=== PATIENT | male | born 1990 | race Caucasian/White ===

== ENCOUNTER 2017-12-03 14:27 | Inpatient (IN) | payer OTHER ==
[~2017-12-03] VITALS: Ht 180.3 cm; Wt 76.0 kg
[2017-12-03 15:30] VITALS: BP 138/81; PULSE 71; RESP 18; TEMP 98.1; O2SAT 99
[2017-12-03 16:10] VITALS: BP 147/64; PULSE 75; RESP 18; O2SAT 99
[2017-12-03] MEDS ORDERED: SODIUM CHLOR 0.9% 1000 ML INJ 1,000 ML IV SCH (16:11)
[2017-12-03] MEDS ORDERED: SODIUM CHLORIDE 0.9% FLUSH 10 ML FLUSH IV FLUSH PRN ×2 (16:15→18:45)
[2017-12-03] MEDS ORDERED: MORPHINE SULFATE 4 MG/ML INJ IV PUSH ONE (16:15)
[2017-12-03] MEDS ORDERED: ONDANSETRON HCL 4 MG/2 ML VIAL IVP ONE (16:15)
[2017-12-03 16:39] VITALS: O2SAT 97
[2017-12-03] MEDS ORDERED: MORPHINE SULFATE 2 MG/ML INJ IV PUSH ONE (17:15)
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
[2017-12-03 17:30] LABS: BASOPHIL % 0.1 % (0.0-2.0); HEMATOCRIT 42.6 % (39.0-51.0); HEMOGLOBIN 14.6 GM/DL (13.0-17.0); LYMPH % 8.2 % (9.0-44.0); LYMPHOCYTE # 1.2 TH/MM3 (1.0-4.8); MEAN CELL VOLUME 85.6 FL (80.0-100.0); MEAN CORPUSCULAR HEMOGLOBIN 29.3 PG (27.0-34.0); MEAN CORPUSCULAR HGB CONC 34.3 % (32.0-36.0); MEAN PLATELET VOLUME 8.6 FL (7.0-11.0); MONO % 4.3 % (0.0-8.0); MONOCYTE # 0.6 TH/MM3 (0-0.9); NEUT % 87.4 % (16.0-70.0); PLATELET COUNT 199 TH/MM3 (150-450); RED BLOOD COUNT 4.98 MIL/MM3 (4.50-5.90); RED CELL DISTRIBUTION WIDTH 14.4 % (11.6-17.2); WHITE BLOOD COUNT 14.9 TH/MM3 (4.0-11.0)
[2017-12-03 17:46] LABS: INTERNATIONAL NORMALIZED RATIO 1.1 RATIO; PROTHROMBIN TIME - PATIENT 11.5 SEC (9.8-11.6)
[2017-12-03 17:56] LABS: ALBUMIN 4.2 GM/DL (3.4-5.0); ALT (GPT) 40 U/L (12-78); AST (GOT) 27 U/L (15-37); BICARBONATE 27.2 MEQ/L (21.0-32.0); BLOOD UREA NITROGEN 21 MG/DL (7-18); CALCIUM 8.5 MG/DL (8.5-10.1); CHLORIDE 105 MEQ/L (98-107); CREATININE 0.88 MG/DL (0.60-1.30); GLOMERULAR FILTRATION RATE 106 ML/MIN (>89); GLUCOSE,RANDOM 89 MG/DL (74-106); SODIUM (NA) 139 MEQ/L (136-145)
[2017-12-03 17:58] LABS: ALKALINE PHOSPHATASE 125 U/L (45-117); TOTAL BILIRUBIN ADULT 1.8 MG/DL (0.2-1.0); TOTAL PROTEIN 7.3 GM/DL (6.4-8.2)
[2017-12-03 18:00] VITALS: BP 146/81; PULSE 79; RESP 18; O2SAT 99
[2017-12-03] MEDS ORDERED: HYDROmorphone HCL PF 2 MG/ML VIAL IV PUSH ONE (18:00)
[2017-12-03] MEDS ORDERED: LACTULOSE SYRUP 20 GM/30 ML CUP PO PRN (18:45)
[2017-12-03] MEDS ORDERED: ONDANSETRON HCL 4 MG/2 ML VIAL IVP PRN (18:45)
[2017-12-03] MEDS ORDERED: BISACODYL 10 MG SUPP RECTAL PRN (18:45)
[2017-12-03] MEDS ORDERED: ACETAMINOPHEN 325 MG TAB PO PRN (18:45)
[2017-12-03] MEDS ORDERED: MAGNESIUM HYDROXIDE SUSP 30 ML CUP PO PRN (18:45)
[2017-12-03] MEDS ORDERED: NALOXONE HCL 0.4 MG/ML AMP IV PUSH PRN (18:45)
[2017-12-03] MEDS ORDERED: SENNOSIDES 8.6 MG TAB PO PRN (18:45)
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
[2017-12-03 19:42] VITALS: BP 171/95; PULSE 72; RESP 18; TEMP 98.1; O2SAT 99
[2017-12-03] MEDS: oxyCODONE/ACETAMINOPHEN 5 MG/325 MG TAB PO PRN ×2 (19:44→23:28)
[2017-12-03] MEDS ORDERED: LACTATED RINGER'S 1000 ML IV PRN (20:00)
[2017-12-03] MEDS ORDERED: POVIDONE IODINE 5% (ANTISEPSIS KIT) 4 APPLICATIONS EACH NARE PRN (20:00)
[2017-12-03] MEDS ORDERED: SODIUM CHLORID 0.9% 500 ML IV PRN (20:00)
[2017-12-03] MEDS ORDERED: CHLORHEXIDINE GLUCONATE 2 % 1 PACK (2 CLOTHS) TOPICAL PRN (20:00)
[2017-12-03] MEDS: DOCUSATE SODIUM 50 MG/SENNA 8.6 MG TAB PO SCH (21:00)
[2017-12-03] MEDS: SODIUM CHLORIDE 0.9% FLUSH 10 ML FLUSH IV FLUSH SCH (21:00)
[2017-12-03] MEDS: SODIUM CHLOR 0.9% 1000 ML INJ 1,000 ML IV SCH (21:04)
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
[2017-12-03] MEDS: HYDROmorphone HCL PF 2 MG/ML VIAL IV PUSH PRN (21:39)
[2017-12-04] VITALS: BP 153/91; PULSE 63; RESP 18; TEMP 97.9; O2SAT 98
[2017-12-04] MEDS: HYDROmorphone HCL PF 2 MG/ML VIAL IV PUSH PRN ×7 (00:20→21:40)
[2017-12-04] MEDS: oxyCODONE/ACETAMINOPHEN 5 MG/325 MG TAB PO PRN (05:49)
[2017-12-04] MEDS: SODIUM CHLOR 0.9% 1000 ML INJ 1,000 ML IV SCH ×2 (06:00→16:00)
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
[2017-12-04 07:52] VITALS: BP 151/85; PULSE 63; RESP 19; TEMP 97.1; O2SAT 99
[2017-12-04] MEDS ORDERED: oxyCODONE/ACETAMINOPHEN 7.5 MG/325 MG TAB PO PRN (08:15)
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
[2017-12-04] MEDS: SODIUM CHLORIDE 0.9% FLUSH 10 ML FLUSH IV FLUSH SCH ×2 (09:29→20:54)
[2017-12-04] MEDS: DOCUSATE SODIUM 50 MG/SENNA 8.6 MG TAB PO SCH ×2 (09:29→19:27)
[2017-12-04] MEDS: ENOXAPARIN SODIUM 40 MG/0.4 ML SYRINGE SQ SCH (10:16)
[2017-12-04] MEDS: oxyCODONE/ACETAMINOPHEN 7.5 MG/325 MG TAB PO PRN ×4 (10:41→23:40)
[2017-12-04 11:50] VITALS: BP 152/96; PULSE 57; RESP 19; TEMP 96.7; O2SAT 98
[2017-12-04 16:00] VITALS: BP 148/91; PULSE 61; RESP 19; TEMP 99.1; O2SAT 99
[2017-12-04 20:00] VITALS: BP 136/85; PULSE 58; RESP 18; TEMP 97.1; O2SAT 100
[2017-12-05] VITALS (8 sets, daily range): BP systolic 131–159; BP diastolic 74–95; PULSE 59–70; RESP 14–20; TEMP 96.4–100; O2SAT 98–99
[2017-12-05] MEDS: HYDROmorphone HCL PF 2 MG/ML VIAL IV PUSH PRN ×2 (00:31→04:16)
[2017-12-05] MEDS: SODIUM CHLOR 0.9% 1000 ML INJ 1,000 ML IV SCH ×3 (02:00→22:00)
[2017-12-05] MEDS ORDERED: GENTAMICIN SULFATE 80 MG/2 ML VIAL ONE (06:47)
[2017-12-05] MEDS ORDERED: SODIUM CHLOR 0.9% 250 ML INJ 250 ML ONE (06:47)
[2017-12-05] MEDS ORDERED: VANCOMYCIN HCL 1000 MG VIAL ONE (06:47)
[2017-12-05] MEDS ORDERED: ceFAZolin 2 GM PREMIX 50 ML ONE (07:10)
[2017-12-05] MEDS ORDERED: ACETAMINOPHEN 1000 MG/100 ML 100 ML IV ONE (07:16)
[2017-12-05] MEDS: ENOXAPARIN SODIUM 40 MG/0.4 ML SYRINGE SQ SCH (07:28)
[2017-12-05] MEDS: SODIUM CHLORIDE 0.9% FLUSH 10 ML FLUSH IV FLUSH SCH ×2 (07:28→20:00)
[2017-12-05] MEDS: DOCUSATE SODIUM 50 MG/SENNA 8.6 MG TAB PO SCH ×2 (07:28→20:00)
[2017-12-05] MEDS ORDERED: WHEEMIS3 (09:04)
[2017-12-05] MEDS ORDERED: WALKER/ADULT/FO1 MIS (09:04)
[2017-12-05] MEDS ORDERED: XARE10TA PO (09:04)
[2017-12-05] MEDS ORDERED: HYDR-3583 PO (09:04)
[2017-12-05] MEDS ORDERED: NALOXONE HCL 0.4 MG/ML AMP IV PUSH PRN (10:00)
[2017-12-05] MEDS ORDERED: MISCELLANEOUS NURSING INFORMATION XX PRN (10:00)
[2017-12-05] MEDS ORDERED: diphenhydrAMINE HCL 25 MG CAP PO PRN (10:00)
[2017-12-05] MEDS ORDERED: Post-op Orders (for Pharmacy) XX ONE (10:00)
--- NOTE | 2017-12-05 10:02 | PD.OP ---
cc: Chuck Mills MD Operative Report Date of Surgery: Dec 05, 2017 Preoperative Diagnosis: Comminuted right lateral tibial plateau fracture Postoperative Diagnosis: Same, large bucket-handle lateral meniscus tear Procedure: Primary repair right lateral meniscus, open reduction internal fixation right tibial plateau Anesthesia: Gen. Surgeon: Chuck Mills Acid Concentrator(s): ANGEL Chinchilla PA-C The surgical procedure was assisted by my physician assistant in nursing. My P.A. presence was necessary throughout this case for the manipulation and positioning of the surgical extremity. My P.A. was assisting me throughout the duration of this procedure. The skill set of a physician assistant in nursing was medically necessary to complete this procedure. During the surgical case the surgical elastic knitter was working at the back table and the physician assistant in nursing was directly assisting me. Operation and Findings: Implants used: Synthes Plan of activity: Nonweightbearing 3 months, passive knee range of motion This patient was seen and evaluated preoperatively. Patient sustained an injury resulting a comminuted right tibial plateau fracture. Informed consent was obtained preoperatively after detailed discussion of the risks and benefits of surgery. Risk of surgery including bleeding, infection, nonunion, painful hardware, stiffness, loss of motion, arthritis, need for knee replacement, as well as medical complications including blood clots, stroke, heart attack, and were discussed. I also discussed the possibility of using allograft bone graft . Preoperatively the operative site was marked. Patient was brought to the operating room and placed on the operating room table. Intravenous sedation and general endotracheal anesthesia were administered. IV antibiotics were given and a time out procedure was preformed. The operative leg was prepped with alcohol followed by Hibiclens and draped in the usual sterile fashion. Procedure began with a 4-inch curvilinear incision over the anterolateral knee. Subcutaneous tissue was treated with Bovie. Iliotibial band was split in line with fibers. A sub-meniscal arthrotomy was created and the lateral articular surface was visualized. At this point it was noted that patient had a large bucket handle type lateral meniscus tear. Attention was turned towards repair of this tear. The meniscus was reduced. #1 Vicryl sutures were used for repair. 4 vertical mattress sutures were placed. The meniscus reduced into appropriate alignment. The meniscus appeared to be stable at this time. Next attention was turned towards open reduction internal fixation of tibial plateau. There was significant comminution and depression of the articular surface. A window was made in the metaphyseal region and bone tamps used to elevate the articular surface. The articular surface was in multiple small fragments. Fracture fragments were manipulated to achieve optimal reduction. K -wires were used for provisional fixation. At this point cancellous bone graft was packed under the articular surface using a bone tamp. An additional 5 cc of Ceramet cement was placed underneath the articular surface for additional support. The cortical fragments were now reduced. Fluoroscopy revealed excellent alignment of fracture. A Synthes proximal tibial plate was selected. The plate was provisionally held with K-wires. 3.5 cortical screws were used compress plate to bone distally, and a periarticular clamp was used to compress the medial and lateral tibial plateau fracture fragments together. Multiple locking screws were now placed proximally. Additional screws were placed in the shaft. K-wires were removed. Final fluoroscopy showed excellent alignment of fracture with well-placed hardware. The incision was thoroughly irrigated. Arthrotomy and iliotibial band closed with #1 Vicryl,. Subcutaneous tissues closed with 3-0 Vicryl and skin was closed with khushbu. Sterile dressings were applied. The patient was transferred to recovery in stable condition. Chuck Mills MD Dec 05, 2017 10:02
[2017-12-05] MEDS ORDERED: *PROMETHAZINE 25 MG/ML VIAL PERIprocedural use ONLY ONE (10:21)
[2017-12-05] MEDS ORDERED: MIDAZOLAM HCL 2 MG/2 ML VIAL ONE (10:25)
[2017-12-05] MEDS ORDERED: *morphine SULFATE 4 MG/ML PERIprocedure ONLY ONE ×2 (10:31→10:41)
--- NOTE | 2017-12-05 10:39 | PD.ORT.PN ---
Subjective Subjective Remarks Resting comfortably with no new complaints Objective Vitals Vital Signs Date Time Temp Pulse Resp B/P (MAP) Pulse Ox O2 Delivery O2 Flow Rate FiO2 12/05/17 04:32 98 12/05/17 04:00 97.6 62 18 131/83 (99) 98 12/05/17 00:00 98.4 62 20 159/83 (108) 99 12/04/17 20:00 97.1 58 18 136/85 (102) 100 12/04/17 16:00 99.1 61 19 148/91 (110) 99 12/04/17 11:50 96.7 57 19 152/96 (114) 98 I/O 12/04/17 12/04/17 12/04/17 12/05/17 12/05/17 12/05/17 07:00 15:00 23:00 07:00 15:00 23:00 Intake Total 240 ml 900 ml 1000 ml 2500 ml Output Total 800 ml 2000 ml 300 ml Balance -560 ml -1100 ml 1000 ml 2200 ml Intake Oral 240 ml 900 ml IV Total 1000 ml Other 2500 ml Output Urine Total 800 ml 2000 ml Estimated Blood Loss 300 ml # Bowel Movements 0 Result Diagram: 12/03/17 1709 12/03/17 1709 Imaging Last 24 hours Impressions Knee X-Ray 12/03/17 1614 Signed Impressions: Service Date/Time: Sunday, December 03, 2017 16:31 - CONCLUSION: 1. Displaced tibial plateau fracture as above with large joint effusion. Jv Thorne MD Chest X-Ray 12/03/17 1614 Signed Impressions: Service Date/Time: Sunday, December 03, 2017 16:26 - CONCLUSION: No acute cardiopulmonary disease identified. . Fady Julien MD Objective Remarks Awake, alert, no acute distress Right lower extremity: Knee immobilizer and ice pack in place. Swelling does appear slightly improved from last night. Patient is neurovascularly intact distally. Negative [facility] Assessment & Plan Assessment and Plan right tibial plateau fracture ORIF POD 0 Nonweightbearing right lower extremity in knee immobilizer. No active leglifts or quad sets Strict elevation and ice. Daily dressing changes beginning POD 2 Lovenox for DVT prophylaxis Incentive spirometry Luis Maxwell Jr. Dec 05, 2017 10:38
[2017-12-05] MEDS: LACTATED RINGER'S 1000 ML INJ 1,000 ML IV SCH ×2 (10:57→22:26)
[2017-12-05] MEDS ORDERED: ERGOCALCIFEROL (VIT D2) 50,000 UNIT CAP PO SCH (11:00)
[2017-12-05] MEDS ORDERED: PROPOFOL 200 MG/20 ML AMP IV ONE (12:00)
[2017-12-05] MEDS ORDERED: ONDANSETRON HCL 4 MG/2 ML VIAL IV ONE (12:00)
[2017-12-05] MEDS ORDERED: DO NOT ADM ANY ANTICOAGULANT DRUGS PRN (12:00)
[2017-12-05] MEDS ORDERED: ePHEDrine/NS 25 MG/5 ML SYRINGE IV ONE (12:00)
[2017-12-05] MEDS ORDERED: LIDOCAINE HCL 1% PF 5 ML SYRINGE OTHER ONE (12:00)
[2017-12-05] MEDS ORDERED: DEXAMETHASONE SOD PHOS 4 MG/ML VIAL IV ONE (12:00)
[2017-12-05] MEDS: CALCIUM/VITAMIN D 250 MG/125 U TAB PO SCH ×2 (12:19→16:04)
[2017-12-05] MEDS: ACETAMINOPHEN/HYDROcodone 325 MG/10 MG TAB PO PRN ×4 (12:20→23:30)
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
[2017-12-05] MEDS: ceFAZolin 2 GM PREMIX 50 ML IV SCH ×2 (16:04→22:17)
[2017-12-05] MEDS: MORPHINE SULFATE 4 MG/ML INJ IV PUSH PRN ×2 (18:22→22:17)
[2017-12-05] MEDS: VANCOMYCIN INJ 1,000 MG in SODIUM CHLOR 0.9% 250 ML INJ 250 ML IV SCH (20:00)
[2017-12-06] VITALS: BP 163/83; PULSE 79; RESP 16; TEMP 96.8; O2SAT 96
[2017-12-06] MEDS: TEMAZEPAM 15 MG CAP PO PRN ×2 (00:07→22:48)
[2017-12-06] MEDS: MORPHINE SULFATE 4 MG/ML INJ IV PUSH PRN ×7 (01:08→22:49)
[2017-12-06] MEDS: LACTATED RINGER'S 1000 ML INJ 1,000 ML IV SCH ×2 (01:45→08:45)
[2017-12-06] MEDS: ACETAMINOPHEN/HYDROcodone 325 MG/10 MG TAB PO PRN ×6 (03:14→21:23)
[2017-12-06 04:00] VITALS: BP 153/77; PULSE 65; RESP 17; TEMP 99; O2SAT 99
[2017-12-06 04:41] LABS: HEMATOCRIT 31.6 % (39.0-51.0); HEMOGLOBIN 11.2 GM/DL (13.0-17.0)
[2017-12-06] MEDS: ceFAZolin 2 GM PREMIX 50 ML IV SCH ×3 (05:51→22:48)
--- NOTE | 2017-12-06 06:51 | PD.ORT.PN ---
Subjective Subjective Remarks Resting comfortably with no new complaints Objective Vitals Vital Signs Date Time Temp Pulse Resp B/P (MAP) Pulse Ox O2 Delivery O2 Flow Rate FiO2 12/06/17 04:00 99.0 65 17 153/77 (102) 99 12/06/17 00:00 96.8 79 16 163/83 (109) 96 12/05/17 21:50 98 21 12/05/17 20:14 100.0 70 18 156/74 (101) 99 12/05/17 16:50 98 12/05/17 16:00 96.4 59 15 155/90 (111) 99 12/05/17 12:00 96.5 70 14 157/95 (115) 99 12/05/17 11:15 98.8 97 15 166/94 (118) 100 Nasal Cannula 3 12/05/17 11:00 82 15 155/94 (114) 100 Nasal Cannula 3 12/05/17 10:45 98 16 161/91 (114) 100 Nasal Cannula 3 12/05/17 10:30 91 16 176/91 (119) 100 Nasal Cannula 3 12/05/17 10:20 98.4 113 15 164/88 (113) 94 Nasal Cannula 3 I/O 12/05/17 12/05/17 12/05/17 12/06/17 12/06/17 12/06/17 07:00 15:00 23:00 07:00 15:00 23:00 Intake Total 1000 ml 3080 ml 760 ml 480 ml Output Total 3450 ml 1500 ml 1000 ml Balance 1000 ml -370 ml -740 ml -520 ml Intake Oral 480 ml 760 ml 480 ml IV Total 1000 ml 100 ml Other 2500 ml Output Urine Total 3150 ml 1500 ml 1000 ml Estimated Blood Loss 300 ml # Bowel Movements 0 Result Diagram: 12/06/17 0410 12/03/17 1709 Imaging Last 24 hours Impressions Knee X-Ray 12/03/17 1614 Signed Impressions: Service Date/Time: Sunday, December 03, 2017 16:31 - CONCLUSION: 1. Displaced tibial plateau fracture as above with large joint effusion. Jv Thorne MD Chest X-Ray 12/03/17 1614 Signed Impressions: Service Date/Time: Sunday, December 03, 2017 16:26 - CONCLUSION: No acute cardiopulmonary disease identified. . Fady Julien MD Objective Remarks Awake, alert, no acute distress Right lower extremity: Knee immobilizer and ice pack in place. Clean dry dressings in place. Distally intact sensation with active dorsiflexion plantar flexion foot Assessment & Plan Assessment and Plan right tibial plateau fracture ORIF POD 1 Nonweightbearing right lower extremity in knee immobilizer. No active leglifts or quad sets Strict elevation and ice. Passive range of motion of knee from 0-90 Daily dressing changes beginning POD 2 Lovenox for DVT prophylaxis Incentive spirometry Discharge plan Luis Maxwell Jr. Dec 06, 2017 06:51
[2017-12-06 08:00] VITALS: BP 152/85; PULSE 60; RESP 18; TEMP 99.3; O2SAT 96
[2017-12-06] MEDS: SODIUM CHLOR 0.9% 1000 ML INJ 1,000 ML IV SCH ×2 (08:00→13:42)
[2017-12-06] MEDS: VANCOMYCIN INJ 1,000 MG in SODIUM CHLOR 0.9% 250 ML INJ 250 ML IV SCH ×2 (08:45→20:40)
[2017-12-06] MEDS: CHOLECALCIFEROL (VIT D3) 1000 UNIT TAB PO SCH (08:46)
[2017-12-06] MEDS: CALCIUM/VITAMIN D 250 MG/125 U TAB PO SCH ×3 (08:46→16:14)
[2017-12-06] MEDS: SODIUM CHLORIDE 0.9% FLUSH 10 ML FLUSH IV FLUSH SCH ×2 (08:46→20:40)
[2017-12-06] MEDS: DOCUSATE SODIUM 50 MG/SENNA 8.6 MG TAB PO SCH ×2 (08:46→20:41)
[2017-12-06] MEDS: ENOXAPARIN SODIUM 40 MG/0.4 ML SYRINGE SQ SCH (10:32)
[2017-12-06 12:00] VITALS: BP 154/86; PULSE 73; RESP 18; TEMP 98.9; O2SAT 100
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
[2017-12-06 16:00] VITALS: BP 156/77; PULSE 80; RESP 18; TEMP 99.2; O2SAT 100
[2017-12-06 20:37] VITALS: BP 158/82; PULSE 85; RESP 17; TEMP 99.6; O2SAT 99
[2017-12-07 00:37] VITALS: BP 158/88; PULSE 94; RESP 17; TEMP 98.5; O2SAT 98
[2017-12-07] MEDS: ACETAMINOPHEN/HYDROcodone 325 MG/10 MG TAB PO PRN ×6 (01:07→20:55)
[2017-12-07] MEDS: SODIUM CHLOR 0.9% 1000 ML INJ 1,000 ML IV SCH (02:23)
[2017-12-07] MEDS: MORPHINE SULFATE 4 MG/ML INJ IV PUSH PRN ×3 (02:51→23:26)
[2017-12-07] MEDS: ceFAZolin 2 GM PREMIX 50 ML IV SCH (05:29)
[2017-12-07] MEDS: BACITRACIN TOP OINT 15 GM TUBE TOPICAL SCH ×2 (05:30→09:29)
--- NOTE | 2017-12-07 06:34 | PD.ORT.PN ---
Subjective Subjective Remarks POD 2 s/p ORIF right tibial plateau doing well. reports pain but controlled. states swelling has increased. Objective Vitals Vital Signs Date Time Temp Pulse Resp B/P (MAP) Pulse Ox O2 Delivery O2 Flow Rate FiO2 12/07/17 00:37 98.5 94 17 158/88 (111) 98 12/06/17 20:37 99.6 85 17 158/82 (107) 99 12/06/17 16:00 99.2 80 18 156/77 (103) 100 12/06/17 12:00 98.9 73 18 154/86 (108) 100 12/06/17 08:00 99.3 60 18 152/85 (107) 96 I/O 12/06/17 12/06/17 12/06/17 12/07/17 12/07/17 12/07/17 07:00 15:00 23:00 07:00 15:00 23:00 Intake Total 530 ml 600 ml 610 ml 100 ml Output Total 1000 ml 650 ml 1050 ml Balance -470 ml -50 ml -440 ml 100 ml Intake Oral 480 ml 600 ml 360 ml IV Total 50 ml 250 ml 100 ml Output Urine Total 1000 ml 650 ml 1050 ml # Bowel Movements 0 Result Diagram: 12/06/17 0410 12/03/17 1709 Imaging Last 24 hours Impressions Knee X-Ray 12/03/17 1614 Signed Impressions: Service Date/Time: Sunday, December 03, 2017 16:31 - CONCLUSION: 1. Displaced tibial plateau fracture as above with large joint effusion. Jv Thoren MD Chest X-Ray 12/03/17 1614 Signed Impressions: Service Date/Time: Sunday, December 03, 2017 16:26 - CONCLUSION: No acute cardiopulmonary disease identified. . Fady Julien MD Objective Remarks Awake, alert, no acute distress Right lower extremity: Knee immobilizer and ice pack in place. Clean dry dressings in place. Distally intact sensation with active dorsiflexion plantar flexion foot. 2+ swelling of lower leg Assessment & Plan Assessment and Plan 1) right tibial plateau fracture s/p ORIF - POD 2 Nonweightbearing right lower extremity in knee immobilizer. No active leglifts or quad sets Strict elevation and ice. Passive range of motion of knee from 0-90 Daily dressing changes beginning POD 2 Lovenox for DVT prophylaxis Incentive spirometry keep 1 more day to eval swelling. if swelling improved, plan for DC home tomorrow and follow up with Mehrdad in 2 weeks Mario Vasquez/First Leeann ANNE Dec 07, 2017 06:34
--- NOTE | 2017-12-07 06:36 | HHI.FF ---
Face to Face Verification Diagnosis: (1) Closed fracture of right tibial plateau Physical Therapy Gait training Knee: Knee fracture, Protocol: Right, Non weight bearing Canvas Knee Splint: Remove only with PT Right LE Weight Bearing: Non WB, No Strengthening, No Quad Sets Right LE Range of Motion: Passive ROM (0-90 deg) Nursing Dressing Changes: Daily dressing change, Luisito wrap, 4x4s, Xeroform I have seen patient Larry Frausto on 12/07/17. My clinical findings support the need for the requested home health care services because: Ltd mobility - disease progression I certify that my clinical findings support that this patient is homebound because: Post-op weakness Mario Vasquez/First Leeann ANNE Dec 07, 2017 06:36
[2017-12-07] MEDS ORDERED: KETOROLAC TROMETHAMINE 60 MG/2 ML (IM) VIAL IM SCH (07:00)
[2017-12-07] MEDS: KETOROLAC TROMETHAMINE 30 MG/ML (IVP) VIAL IV PUSH SCH ×4 (07:40→23:26)
[2017-12-07 07:59] VITALS: BP 155/82; PULSE 83; RESP 19; TEMP 99; O2SAT 98
[2017-12-07] MEDS: CHOLECALCIFEROL (VIT D3) 1000 UNIT TAB PO SCH (09:00)
[2017-12-07] MEDS: CALCIUM/VITAMIN D 250 MG/125 U TAB PO SCH ×3 (09:25→16:59)
[2017-12-07] MEDS: DOCUSATE SODIUM 50 MG/SENNA 8.6 MG TAB PO SCH ×2 (09:25→20:55)
[2017-12-07] MEDS: SODIUM CHLORIDE 0.9% FLUSH 10 ML FLUSH IV FLUSH SCH ×2 (09:27→20:55)
[2017-12-07] MEDS: ENOXAPARIN SODIUM 40 MG/0.4 ML SYRINGE SQ SCH (09:28)
[2017-12-07 11:46] VITALS: BP 156/78; PULSE 85; RESP 19; TEMP 97.2; O2SAT 100
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
[2017-12-07 15:24] VITALS: BP 149/79; PULSE 86; RESP 19; TEMP 97.2; O2SAT 99
[2017-12-07 19:55] VITALS: BP 146/74; PULSE 76; RESP 16; TEMP 98.4; O2SAT 99
[2017-12-07 23:25] VITALS: BP 154/88; PULSE 90; RESP 17; TEMP 98.9; O2SAT 99
[2017-12-07] MEDS: TEMAZEPAM 15 MG CAP PO PRN (23:26)
[2017-12-08] MEDS: LACTATED RINGER'S 1000 ML INJ 1,000 ML IV SCH (00:26)
[2017-12-08] MEDS: ACETAMINOPHEN/HYDROcodone 325 MG/10 MG TAB PO PRN ×3 (05:15→12:21)
--- NOTE | 2017-12-08 06:29 | PD.ORT.PN ---
Subjective Subjective Remarks POD 2 s/p ORIF right tibial plateau doing well. reports pain but controlled. states swelling improved Objective Vitals Vital Signs Date Time Temp Pulse Resp B/P (MAP) Pulse Ox O2 Delivery O2 Flow Rate FiO2 12/07/17 23:25 98.9 90 17 154/88 (110) 99 12/07/17 19:55 98.4 76 16 146/74 (98) 99 12/07/17 15:24 97.2 86 19 149/79 (102) 99 12/07/17 11:46 97.2 85 19 156/78 (104) 100 12/07/17 07:59 99.0 83 19 155/82 (106) 98 I/O 12/07/17 12/07/17 12/07/17 12/08/17 12/08/17 12/08/17 07:00 15:00 23:00 07:00 15:00 23:00 Intake Total 460 ml 800 ml 1020 ml Output Total 1200 ml 650 ml Balance 460 ml -400 ml 370 ml Intake Oral 360 ml 800 ml 1020 ml IV Total 100 ml Output Urine Total 1200 ml 650 ml # Voids 2 # Bowel Movements 0 0 Result Diagram: 12/06/17 0410 Imaging Last 24 hours Impressions Knee X-Ray 12/03/17 1614 Signed Impressions: Service Date/Time: Sunday, December 03, 2017 16:31 - CONCLUSION: 1. Displaced tibial plateau fracture as above with large joint effusion. Jv Thorne MD Chest X-Ray 12/03/17 1614 Signed Impressions: Service Date/Time: Sunday, December 03, 2017 16:26 - CONCLUSION: No acute cardiopulmonary disease identified. . Fady Julien MD Objective Remarks Awake, alert, no acute distress Right lower extremity: Knee immobilizer and ice pack in place. Clean dry dressings in place. Distally intact sensation with active dorsiflexion plantar flexion foot. 1+ swelling of lower leg Assessment & Plan Assessment and Plan 1) right tibial plateau fracture s/p ORIF - POD 3 Nonweightbearing right lower extremity in knee immobilizer. No active leglifts or quad sets Strict elevation and ice. Passive range of motion of knee from 0-90 Daily dressing changes beginning POD 2 Lovenox for DVT prophylaxis Incentive spirometry ortho cleared for Dc home with C f/u with [facility] or [facility] in 2 weeks Mario Vasquez PA/Team Physician PA Dec 08, 2017 06:29
[2017-12-08 07:33] VITALS: BP 135/71; PULSE 75; RESP 19; TEMP 98; O2SAT 98
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
[2017-12-08] MEDS: CHOLECALCIFEROL (VIT D3) 1000 UNIT TAB PO SCH (08:53)
[2017-12-08] MEDS: CALCIUM/VITAMIN D 250 MG/125 U TAB PO SCH ×2 (08:53→12:20)
[2017-12-08] MEDS: DOCUSATE SODIUM 50 MG/SENNA 8.6 MG TAB PO SCH (08:54)
[2017-12-08] MEDS: ENOXAPARIN SODIUM 40 MG/0.4 ML SYRINGE SQ SCH (08:56)
[2017-12-08] MEDS: SODIUM CHLORIDE 0.9% FLUSH 10 ML FLUSH IV FLUSH SCH (08:57)
[2017-12-08] MEDS: BACITRACIN TOP OINT 15 GM TUBE TOPICAL SCH (09:00)
[2017-12-08] MEDS: SODIUM CHLOR 0.9% 1000 ML INJ 1,000 ML IV SCH ×2 (10:00)
[2017-12-08 11:45] VITALS: BP 137/80; PULSE 79; RESP 19; TEMP 98.1; O2SAT 99
== END 2017-12-08 13:48 | disposition home health service (06) | DRG 489 ==
LOC: NEPD 14:27 → NEDA 18:31 → N06A 19:33
PROVIDERS: ADMIT Family Medicine; ATTEND Family Medicine
PROC: 0SQC0ZZ Repair Right Knee Joint, Open Approach (ICD-10-PCS; 2017-12-05)
PROC: 0QSG04Z Reposition Right Tibia with Internal Fixation Device, Open Approach (ICD-10-PCS; principal; 2017-12-05 07:15)
DX: S82.141A Displaced bicondylar fracture of right tibia, initial encounter for closed fracture (principal); D64.9 Anemia, unspecified; S83.251A Bucket-handle tear of lateral meniscus, current injury, right knee, initial encounter; S20.211A Contusion of right front wall of thorax, initial encounter; V86.56XA Driver of dirt bike or motor/cross bike injured in nontraffic accident, initial encounter; Y93.79 Activity, other specified sports and athletics; Y92.39 Other specified sports and athletic area as the place of occurrence of the external cause
CPT/HCPCS: 71045; 73560; 73700; 76000; 80053; 82652; 85014; 85018; 85025; 85610; 85730; 94150; 96361; 96374; 96375; 96376; C1713; J0131; J0690; J1100; J1170; J1580; J1650; J1885; J2250; J2270; J2405; J2550; J3010; J3370; J7030; J7050; J7120; L1830